=== PATIENT | male | born 1975 | race Caucasian/White ===

== ENCOUNTER 2018-07-23 09:12 | Day surgery (SDC) | payer OTHER ==
[2018-07-23] MEDS ORDERED: MIDAZOLAM 1 MG/ML 2 ML INJ ×3 (11:37→11:38)
[2018-07-23] MEDS ORDERED: FENTAnyl 50 MCG/ML VIAL (11:38)
== END 2018-07-23 18:21 | disposition home or self-care (01) ==
LOC: GIL 09:12
DX: R19.4 Change in bowel habit (principal)
CPT/HCPCS: 45378